=== PATIENT | female | born 1965 | race Caucasian/White ===

== ENCOUNTER 2018-02-07 08:30 | Day surgery (SDC) | payer BC ==
[~2018-02-07 08:30] MED LIST: NO HOME MEDS
[2018-02-07] MEDS ORDERED: LIDOcaine 2% 5ml jelly ONE (09:35)
== END 2018-02-07 10:23 | disposition home or self-care (01) ==
LOC: WOUND CARE 08:30
PROVIDERS: ATTEND Surgery
DX: L97.821 Non-pressure chronic ulcer of other part of left lower leg limited to breakdown of skin (principal); I87.2 Venous insufficiency (chronic) (peripheral)
CPT/HCPCS: 11042; 87070; 87075; 87076; 87077; 87102; 87176; 87185; 87186; A6021; A6206; A6441

== ENCOUNTER 2018-02-12 09:00 | Outpatient (CLI) | payer BC ==
[2018-02-12] MEDS ORDERED: LIDOcaine 2% 5ml jelly ONE (09:40)
[2018-02-12] MEDS ORDERED: CLIN300C98 (14:35)
== END 2018-02-12 11:41 | disposition home or self-care (01) ==
LOC: EDSTATUS 09:00 → WOUND CARE 09:00
PROVIDERS: ATTEND Surgery
DX: I83.223 Varicose veins of left lower extremity with both ulcer of ankle and inflammation (principal); L97.222 Non-pressure chronic ulcer of left calf with fat layer exposed
CPT/HCPCS: 29581; 93970; A6021; A6206; A6441

== ENCOUNTER 2018-02-19 09:26 | Day surgery (SDC) | payer BC ==
[~2018-02-19 09:26] MED LIST changes: +CLIN300C98; -NO HOME MEDS
[2018-02-19] MEDS ORDERED: LIDOcaine 2% 5ml jelly ONE (10:59)
== END 2018-02-19 12:05 | disposition home or self-care (01) ==
LOC: WOUND CARE 09:26
PROVIDERS: ATTEND Surgery
DX: I83.223 Varicose veins of left lower extremity with both ulcer of ankle and inflammation (principal); L97.222 Non-pressure chronic ulcer of left calf with fat layer exposed; L97.821 Non-pressure chronic ulcer of other part of left lower leg limited to breakdown of skin
CPT/HCPCS: 36415; 83036; 97597; 97598; A6021; A6222; A6441

== ENCOUNTER 2018-02-26 09:25 | Day surgery (SDC) | payer BC ==
[2018-02-26] MEDS ORDERED: LIDOcaine 2% 5ml jelly ONE (10:35)
== END 2018-02-26 11:26 | disposition home or self-care (01) ==
LOC: WOUND CARE 09:25
PROVIDERS: ATTEND Surgery
DX: I83.223 Varicose veins of left lower extremity with both ulcer of ankle and inflammation (principal); L97.222 Non-pressure chronic ulcer of left calf with fat layer exposed
CPT/HCPCS: 97597; A6021; A6223; A6441

== ENCOUNTER 2018-03-05 09:39 | Day surgery (SDC) | payer BC ==
[2018-03-05] MEDS ORDERED: LIDOcaine 2% 5ml jelly ONE (11:23)
== END 2018-03-05 12:26 | disposition home or self-care (01) ==
LOC: WOUND CARE 09:39
PROVIDERS: ATTEND Surgery
DX: I83.223 Varicose veins of left lower extremity with both ulcer of ankle and inflammation (principal); L97.222 Non-pressure chronic ulcer of left calf with fat layer exposed
CPT/HCPCS: 97597; A6021; A6222; A6441

== ENCOUNTER 2018-03-12 09:51 | Outpatient (CLI) | payer BC | END 2018-03-12 11:45 | disposition home or self-care (01) | LOC: WOUND CARE 09:51 | PROVIDERS: ATTEND Surgery | DX: I83.223 Varicose veins of left lower extremity with both ulcer of ankle and inflammation (principal); L97.822 Non-pressure chronic ulcer of other part of left lower leg with fat layer exposed | CPT/HCPCS: 99214; 99215 ==